=== PATIENT | male | born 1990 | race Caucasian/White ===

== ENCOUNTER 2018-06-11 19:32 | Emergency (ER) | payer BC, SELFPAY ==
[2018-06-11 19:34] VITALS: BP 139/85; PULSE 77; RESP 16; TEMP 35.5; O2SAT 97; BMI 28.5
[2018-06-11 20:16] LABS: Absolute Lymphocyte Count 2.65 X10^3/ul (0.83-4.51); Absolute Neutrophil Count 5.3 X10^3/uL (2.0-7.7); Basophil# 0.05 X10^3/uL; Basophil% 0.5 % (0-1); Eosinophil# 0.92 X10^3/uL; Eosinophils% 9.6 % (0-5); Hematocrit 46.6 % (40-54); Hemoglobin 16.7 g/dl (13.0-16.5); Lymphocyte # 2.65 X10^3/ul (4.0); Lymphocyte % 27.6 % (19-41); Mean Corp Hgb Conc 35.8 g/gl (32-36); Mean Corpuscular Hgb 31.2 pg (27.0-32.0); Mean Corpuscular Volume 87.1 fL (80-94); Mean Platelet Vol. 9.3 fl (6.2-12.0); Monocyte# 0.69 X10^3/uL; Monocyte% 7.2 % (0-10); Neutrophil # 5.26 X10^3/uL (2.7-7.7); Neutrophil % 54.9 % (47-70); POSITIVE COUNT NO; POSITIVE DIFFERENTIAL NO; POSITIVE MORPHOLOGY NO; Platelet Count 258 K/mm3 (150-450); RBC Distribution Width CV 11.7 % (11.6-14.6); RBC Distribution Width SD 37.4 fl (35.1-43.9); Red Blood Count 5.35 M/mm3 (4.6-6.2); White Blood Count 9.6 K/mm3 (4.4-11.0)
[2018-06-11 20:30] LABS: Anion Gap 7 (5-15); BUN 15 mg/dL (7-18); BUN/Creat Ratio 15.1 RATIO (10-20); Calcium,Total 9.2 mg/dL (8.5-10.1); Chloride 107 mmol/L (98-107); Creatinine, Serum 0.99 mg/dL (0.70-1.30); EST Glomerular Filtration Rate 96 mL/min (>60); Est Glom Filt Rate - Afr Amer 117 mL/min (>60); Estimated Creatinine Clearance 124.11 ml/min; Glucose 89 mg/dL (74-106); Sodium Level 141 mmol/L (136-145)
--- NOTE | 2018-06-11 20:35 | CT_ITS ---
STUDY: CT ABDOMEN AND PELVIS WITH CONTRAST REASON FOR EXAM: Male, 27 years old. Right lower quadrant pain. Nausea. RADIATION DOSAGE (If Supplied By Facility): CTDIvol = ( 14.91 ) mGy, DLP = ( 2154.24 ) mGycm TECHNIQUE: Transaxial images were obtained from the dome of the diaphragm to the symphysis pubis without oral contrast. 100ML IV Isovue 370 was administered. Sagittal and coronal images were reconstructed. Individualized dose optimization techniques were used for this CT. COMPARISON: None. FINDINGS: The visualized lung bases are unremarkable. The visualized portions of the heart are within normal limits. Normal liver. The gallbladder is moderately contracted. Normal spleen. Normal pancreas. Normal bilateral adrenal glands. Normal right kidney. Normal left kidney. Evaluation of the GI tract is limited by absence of oral contrast. Cannot exclude stomach wall thickening. No dilated loops of bowel or evidence for obstruction. Cannot exclude segmental thickening of the siegel of the small or large bowel. Cannot exclude enteritis or colitis. Appendix within normal limits. Normal abdominal aorta. Normal inferior vena cava. Normal retroperitoneum. Normal urinary bladder. Normal abdominal wall. Normal osseous structures. CT/Abdomen/Pelvis W IV Cont ONLY IMPRESSION: Normal enhanced CT of the abdomen and pelvis. Electronically Signed: Josue Huang MD at 21:36 EDT , Service support ,
--- NOTE | 2018-06-11 20:38 | ED.DCSUM_ITS ---
- ER Visit Summary Date of Service: 06/11/18 Chief Complaint: Abdominal pain History of Present Illness: The patient is a 27 M persistent suprapubic pain since yesterday evening, upon arrival to the ED pain to the right lower quadrant. Nausea without vomiting. No diarrhea. No fevers this morning. No urinary symptoms. Pain is persistent with occasional sharp sensations. No history of similar. Last meal was at 11 AM. No past history no surgical history. No allergies. Pain is 5 -6 out of 10. Physical Examination: General: Alert and oriented ?3, no acute distress HEENT: Normocephalic, atraumatic. Moist mucosa membranes Neck: supple, nontender. Cardiovascular: Regular rate and rhythm, no murmurs Respiratory: Normal breath sounds, symmetric, no distress Abdomen: Soft, right lower quadrant tenderness without guarding or rebound, negative Rovsing's. Negative Harper's. Nondistended. Normal bowel sounds Extremities: Nontender, no edema, pulses intact ?4 Neuro: no focal neurological deficits. Test Results: WBC 9.6 hemoglobin 16.7. Creatinine 0.96. UA negative for infection. CT abdomen pelvis IV contrast normal appendix. Per radiology cannot exclude bowel thickening due to no oral contrast. Emergency Department Course and Treatment: Patient progressed symptoms as yesterday right lower quadrant exam there is no guarding or rebound. Declines any medications. Workup to rule out appendicitis. Nursing protocol obtain labs and urine normal ranges. He was sent for CT abdomen pelvis IV contrast. In the interim after IV dye developed respiratory complaints is evaluated, was given Solu-Medrol Benadryl Pepcid he was monitored. Symptoms improved. Results of CT notes a normal appendix per radiology report cannot exclude bowel wall thickening or findings. He has been having no vomiting or diarrhea. Reevaluation is mild to the right lower quadrant, this time normal labs and exams, discussed close monitoring symptoms next 12-24 hours, discussed if symptoms worsen or new symptoms return for reevaluation. Otherwise follow-up as an outpatient. Rx prednisone and pepcid for allergic reaction. Treatment Plan: [] Disposition: discharge Impression: 1) RLQ abdominal pain 2) allergic reaction to IV dye This note was generated with [employer] dictation software. It may contain incorrect words, spelling, and punctuation that were not noted in review of the chart prior to signing ED Disposition - Plan for ED Patient: Disposition: Home or Assisted Living Diagnosis: RLQ abdominal pain, allergic reaction to iv dye Instructions: ED Abdominal Pain Unkn Cause, ED Drug React Allergic Prescriptions: predniSONE tablet 60 mg PO DAILY #12 tablet Famotidine [Pepcid] 20 mg PO BID #10 tablet Referrals: Dakotah Zheng III, MD [Primary Care Provider] - 1 Day for another exam
[2018-06-11] MEDS: 0.9% Normal Saline 1,000 ML 150 ML IV (20:40)
[2018-06-11] MEDS: DiphenhydrAMINE 50 MG/ML Syringe IV (21:13)
[2018-06-11] MEDS: Famotidine 20 MG Tablet PO (21:13)
[2018-06-11] MEDS: MethylPREDNISolone 125 MG/2 ML Vial IV (21:13)
[2018-06-11 21:18] VITALS: PULSE 88; RESP 14; O2SAT 98
[2018-06-11 21:29] LABS: Bacteria 0 SEEN /hpf (None Seen); Mucous, Urine 0 SEEN /hpf (<or=2+); Squamous Epithelial Cells - UA 0 SEEN /hpf (0-5); White Blood Cells 0 SEEN /hpf (0-5)
[2018-06-11 21:31] LABS: Color, Urine Yellow (Yellow); Glucose, Dipstick Normal (Normal); Ketone-Dipstick Negative (Negative); Leukocyte Esterase-Dipstick Negative /ul (Negative); Nitrite-Dipstick Negative (Negative); Occult Blood-Urine 10 /ul (Negative); Protein-Dipstick Negative (Negative); Specific Gravity, Urine 1.015 (1.002-1.030); Urine Bilirubin Dipstick Negative (Negative); Urine Clarity Clear (Clear); Urine Urobilinogen Normal (Normal)
[2018-06-11 21:39] LABS: Red Blood Cells-Urine 0-5 SEEN /hpf (0-5)
[2018-06-11 22:27] VITALS: BP 132/98; PULSE 80; RESP 16; O2SAT 96
== END 2018-06-11 22:28 | disposition home or self-care (01) ==
PROVIDERS: Emergency Provider Emergency Medicine; Family Provider Family Medicine; PCP Family Medicine
DX: R10.31 Right lower quadrant pain (principal); R09.89 Other specified symptoms and signs involving the circulatory and respiratory systems; T50.8X5A Adverse effect of diagnostic agents, initial encounter; Y92.239 Unspecified place in hospital as the place of occurrence of the external cause; R11.0 Nausea; Z91.041 Radiographic dye allergy status; Z72.0 Tobacco use
CPT/HCPCS: 74177; 80048; 81001; 85025; 96361; 96374; 96375; 99284; J7030; Q9967; A4216